=== PATIENT | male | born 1970 | race Caucasian/White ===

== ENCOUNTER 2024-03-14 19:03 | Emergency (ER) | payer SELFPAY ==
[2024-03-14 19:15] VITALS: BP 167/106; PULSE 114; RESP 26; TEMP 37.1; O2SAT 96; BMI 39.1
--- NOTE | 2024-03-14 19:25 | XRR_ITS ---
PROCEDURE INFORMATION: Exam: XR Right Ribs with PA Chest Exam date and time: 03/14/2024 7:55 PM Age: 53 years old Clinical indication: Chest wall pain; Right TECHNIQUE: Imaging protocol: Radiologic exam of the right ribs with PA chest. Views: 3 views COMPARISON: No relevant prior studies available. FINDINGS: Lungs: Clear, symmetrically inflated lungs. Pleural spaces: No pleural effusion. No pneumothorax. Heart/Mediastinum: Mild cardiomegaly. Bones/joints: No displaced fractures are evident. 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 XR/XR ribs RT mn 3V w [id number] IMPRESSION: No displaced rib fractures are seen, but there is limited plain film sensitivity for nondisplaced fractures. Regardless, there is no evidence of pneumothorax, pulmonary parenchymal contusion, or pleural effusion.
[2024-03-14 20:24] VITALS: BP 151/103; PULSE 123; RESP 22; O2SAT 93
[2024-03-14 20:30] VITALS: BP 159/92; PULSE 113; RESP 18; O2SAT 94
[2024-03-14] MEDS: HYDROcodone-acetaminophen 7.5-325 mg Tablet 1 TAB PO ×2 (20:52→22:18)
[2024-03-14] MEDS: dexamethasone 10 mg/mL INJ IM (20:53)
--- NOTE | 2024-03-14 21:03 | ED_ITS ---
HPI - Abdominal Pain General: Chief Complaint: Abdominal Pain Stated Complaint: Rib Pain Time Seen by Provider: 03/14/24 20:03 Source: patient Mode of arrival: ambulatory Limitations: no limitations History of Present Illness: Patient is a 53-year-old male presenting to the emergency department complaining of right side pain onset yesterday. 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 He does not report any shortness of breath though states it does hurt with deep breathing. He has not taken anything for pain at this time. No other concerning historical factors or symptoms to report at this time. MD elicited complaint: other (Right rib pain) Pertinent past history: none Onset (ago): day(s) Pain Consistency: constant Severity: severe Quality: sharp Radiation: none Exacerbating factors: other (Deep breathing, palpation) Relieving factors: nothing Associated Symptoms: Denies chills, constipation, diarrhea, dysuria, fever(s), nausea and vomiting Review of Systems General: Reports: 10 or more systems reviewed and unremarkable except in HPI and below Const: Denies: fever(s), chills or fatigue Eyes: Denies: change in vision ENMT: Denies: throat pain, ear or mastoid pain or nasal discharge Card: Denies: chest pain, palpitations, swelling of feet/ankles or lightheadedness Resp: Reports: pain on inspiration; Denies: dyspnea, productive cough or wheezing GI: Denies: abdominal pain, nausea, vomiting, diarrhea or constipation : Denies: flank pain, difficulty urinating, dysuria or urinary frequency Musc: Reports: other (Right side pain); Denies: neck pain, back pain or joint pain Skin/Breast: Denies: rash Neuro: Denies: headache(s), numbness in extremities or weakness in extremities Physical Exam Const: COMMON NORMALS: no acute distress, patient oriented x3, no limitations, healthy appearing, alert and well nourished HENMT: COMMON NORMALS: normocephalic and atraumatic HEAD & SCALP: normocephalic and atraumatic Neck/C-Spine: COMMON NORMALS: full ROM, supple and no meningeal signs Chest: OTHER: Moderate to severe reproducible tenderness to palpation of the right anterolateral lower ribs. No step-off deformity or outward bruising noted. Resp: COMMON NORMALS: normal respiratory effort, No use of accessory muscles and clear to auscultation bilaterally AUSCULTATION: clear to auscultation bilaterally OTHER: Pain with deep inspiration. Cardio: COMMON NORMALS: regular rhythm RATE: tachycardic RHYTHM: regular rhythm Extremity: COMMON NORMALS: normal to inspection, full ROM, capillary refill normal, no joint enlargement and no clubbing, cyanosis or edema Neuro: COMMON NORMALS: patient oriented x3, moves all extremities, no focal motor deficits and no sensory deficits noted SENSORIUM/ORIENTATION: Yes alert MENINGEAL SIGNS: Yes no meningeal signs Skin: COMMON NORMALS: no rashes or lesions noted GENERAL SKIN EXAM: no rash es or lesions noted Course Vital Signs: Vital signs: Vital Signs Temperature 98.7 F 03/14/24 19:15 Pulse Rate 113 H 03/14/24 20:30 Respiratory Rate 19 H 03/14/24 22:00 Blood Pressure 159/92 03/14/24 20:30 Pulse Oximetry 94 03/14/24 20:30 Oxygen Delivery Me thod Room Air 03/14/24 20:30 MDM - Abdominal Pain Medical Decision Making Patient presented with right rib pain after suffering trauma repeatedly from it yesterday. Pain is only worsened. Pain is noted to be to the right anterolateral lower ribs. X-ray did not demonstrate any obvious fractures and there was additionally no evidence of underlying lung pathology. Pain was significantly reproducible to palpation, leading me to believe that it is likely a contusion of the rib. He does note some improvement of the pain after receiving steroid shot and [place], we will continue to treat his pain at home and encourage pulmonary hygiene. He is to return with any onset of shortness of breath, significant worsening of pain, or other systemic signs of illness. He understands this and will be discharged home at this time. Lab Data Labs/Radiology: Radiology Impressions Ribs X-Ray 03/14/24 19:25 IMPRESSION: No displaced rib fractures are seen, but there is limited plain film sensitivity for nondisplaced fractures. Regardless, there is no evidence of pneumothorax, pulmonary parenchymal contusion, or pleural effusion. All radiology interpretation(s) finalized by discharge Discharge Plan Discharge Patient Disposition: Home Clinical Impression: Contusion of rib on right side Condition: Stable Prescriptions: New hydrocodone-acetaminophen 7.5-325 mg tablet 1 tab PO Q8H PRN (Reason: pain) Qty: 20 0RF prednisone 20 mg tablet 60 mg PO ONCE 5 Days Qty: 15 0RF Discharge Orders: Discharge ED (Routine); Ordered 03/14/24 Ordered By: Mitchell Chen Referrals: Lico Mclean MD [Primary Care Provider] - Discharge Diet: Usual diet Discharge Activity: Increase activity as tolerated Patient Instructions: Rib Contusion (ED) Activity Restrictions/Additional Instructions: Pulmonary hygiene as discussed. Take pain medications to help with pain and being able to take deep breaths. Avoid reinjury of the side. If you develop any shortness of breath or worsening pain that is unbearable to treat at home, please follow-up with primary care or return for reevaluation. Coding Level of Care Code ED [employer] T[employer] for Gerard Archuleta
[2024-03-14 22:00] VITALS: RESP 19
== END 2024-03-14 22:21 | disposition home or self-care (01) ==
PROVIDERS: Emergency Provider Physician Assistant; PCP Family Medicine
DX: S20.211A Contusion of right front wall of thorax, initial encounter (principal); W22.8XXA Striking against or struck by other objects, initial encounter
CPT/HCPCS: 71101; 96372; 99284; J1100